=== PATIENT | female | born 1990 | race Caucasian/White ===

== ENCOUNTER → 2017-01-25 | Outpatient (CLI) | payer OTHER ==
[2017-01-25 16:16] LABS: URINE APPEARANCE CLEAR (CLEAR); URINE BILIRUBIN NEG (NEG); URINE COLOR YELLOW; URINE NITRITE NEG (NEG); URINE PH 5.5 (4.5-7.5); URINE SPECIFIC GRAVITY 1.018 (1.000-1.030); UROBILINOGEN NEG (NEG)
[2017-01-25 16:25] LABS: MANUAL MICROSCOPIC REQUIRED? NO; REVIEW REQ? NO
== END | disposition home or self-care (01) ==
LOC: C.LABSPEC 15:55
PROVIDERS: ATTEND Obstetrics & Gynecology
DX: Z34.01 Encounter for supervision of normal first pregnancy, first trimester (principal)

== ENCOUNTER → 2017-02-01 | Outpatient (CLI) | payer OTHER | END | disposition home or self-care (01) | LOC: C.PAPS 09:48 | PROVIDERS: ATTEND Obstetrics & Gynecology | DX: Z12.4 Encounter for screening for malignant neoplasm of cervix (principal) ==

== ENCOUNTER → 2017-02-01 | Outpatient (CLI) | payer OTHER ==
[2017-02-01 16:32] LABS: BASO % 0.3 %; BASO ABS # 0.02 K/uL (0-0.2); COMPLETE YES; EOS % 0.5 %; HEMATOCRIT 38.6 % (37-47); IG% 0.3 %; LYMPH % 24.5 %; LYMPH ABS # 1.87 K/uL (1.2-3.4); MEAN CELL VOLUME 94.8 fL (80-100); MEAN CORPUSCULAR HEMOGLOBIN 32.9 pg (25-34); MEAN CORPUSCULAR HGB CONC 34.7 g/dl (32-36); MEAN PLATELET VOLUME 11.3 fL (7.4-10.4); MONO % 7.3 %; NEUT % 67.1 %; PLATELET COUNT 216 K/uL (130-400); RED BLOOD COUNT 4.07 M/uL (4.2-5.4); WHITE BLOOD COUNT 7.62 K/uL (4.8-10.8)
[2017-02-06 00:07] LABS: CHLAMYDIA TRACH RNA*** NOT DETECTED (NOT DETECTED); GC (NEIS GONORRHOEAE)RNA** NOT DETECTED (NOT DETECTED)
== END | disposition home or self-care (01) ==
LOC: C.LAB1850 15:30
PROVIDERS: ATTEND Obstetrics & Gynecology
DX: Z34.01 Encounter for supervision of normal first pregnancy, first trimester (principal)

== ENCOUNTER → 2017-03-22 | Outpatient (CLI) | payer BC | END | disposition home or self-care (01) | LOC: C.LAB1850 14:37 | PROVIDERS: ATTEND Obstetrics & Gynecology | DX: Z34.02 Encounter for supervision of normal first pregnancy, second trimester (principal) ==

== ENCOUNTER → 2017-04-09 | Outpatient (CLI) | payer BC | END | disposition home or self-care (01) | LOC: C.LAB1850 07:44 | PROVIDERS: ATTEND Obstetrics & Gynecology | DX: O28.1 Abnormal biochemical finding on antenatal screening of mother (principal); Z3A.00 Weeks of gestation of pregnancy not specified ==

== ENCOUNTER → 2017-06-14 | Outpatient (CLI) | payer BC ==
[2017-06-14 12:39] LABS: HEMATOCRIT 38.3 % (37-47); HEMOGLOBIN 13.1 g/dL (12.0-16.0)
== END | disposition home or self-care (01) ==
LOC: C.LAB1850 09:48
PROVIDERS: ATTEND Obstetrics & Gynecology
DX: Z34.03 Encounter for supervision of normal first pregnancy, third trimester (principal)

== ENCOUNTER → 2017-06-27 | Outpatient (CLI) | payer BC | END | disposition home or self-care (01) | LOC: C.LAB1850 08:02 | PROVIDERS: ATTEND Obstetrics & Gynecology | DX: O28.1 Abnormal biochemical finding on antenatal screening of mother (principal) ==

== ENCOUNTER 2020-03-09 15:44 | Inpatient (IN) ==
[2020-03-09 16:24] LABS: Basophils # (auto) 0.01 K/uL (0-0.2); Basophils % (auto) 0.1 %; Eosinophils # (auto) 0.07 K/uL (0-0.5); Hemoglobin 13.9 g/dL (12.0-16.0); Immature Granulocytes # (auto) 0.06 K/uL (0.00-0.02); Immature Granulocytes % (auto) 0.8 %; Lymphocytes # (auto) 1.78 K/uL (1.2-3.4); Lymphocytes % (auto) 24.6 %; Mean Corpuscular Hemoglobin 33.9 pg (25-34); Mean Platelet Volume 11.9 fL (7.4-10.4); Monocytes # (auto) 0.59 K/uL (0.11-0.59); Monocytes % (auto) 8.2 %; Neutrophils # (auto) 4.72 K/uL (1.4-6.5); Neutrophils % (auto) 65.3 %; Platelet Count 167 K/uL (130-400); RDW Coefficient of Variation 13.6 % (11.5-14.5); RDW Standard Deviation 49.4 fL (36.4-46.3); White Blood Count 7.23 K/uL (4.8-10.8)
[2020-03-09 16:25] LABS: Mean Corpuscular Hgb Conc 33.9 g/dL (32-36)
[2020-03-09 16:41] LABS: Alanine Aminotransferase 17 U/L (12-78); Albumin Level 3.2 gm/dl (3.4-5.0); Aspartate Aminotransferase 16 U/L (15-37); BUN Creatinine Ratio 13.5 (10-20); Blood Urea Nitrogen 9 mg/dl (7-18); Calcium 9.1 mg/dl (8.5-10.1); Carbon Dioxide 20 mmol/L (21-32); Chloride 114 mmol/L (98-107); Est GFR (African American) 138.4; Est GFR (Non-African American) 119.4; Glucose 86 mg/dl (70-99); Potassium 3.7 mmol/L (3.5-5.1); Sodium 139 mmol/L (136-145)
[2020-03-09 16:44] LABS: Albumin Globulin Ratio 0.9 (0.9-2); Alkaline Phosphatase 172 U/L (45-117); Bilirubin,Total 0.3 mg/dl (0.2-1); Globulin 3.7 gm/dl (2.5-4.0); Total Protein 6.9 gm/dl (6.4-8.2)
[2020-03-09 17:11] LABS: Creatinine Urine Random 27.7 mg/dl; Total Protein Urine Random < 5.0 mg/dl (0-11.9)
--- NOTE | 2020-03-09 17:31 | History & Physical Report ---
Date of Service March 09, 2020 Assessment & Plan (1) : 30 y/o at 37 2/7 wga presenting for eval of elevated BPs in clinic -Will monitor BPs here, will meet criteria if still mild range after 4 hours and delivery would be indicated at this GA -PET labs ordered -Will try different maternal positioning to try to move fetus into true vertex position, but discussed would need to discuss version vs if still malpositioned History of Present Illness Chief Complaint: Elevated BP in clinic Primary Care Provider: GT Ramirez 30 y/o at 37 2/7 wga w/ [facility] 03/28/20 by LMP 06/22/19 c/w 1st tri US on 09/13 who presents from clinic due to elevated BPs in clinic. Seen for routine OB visit today when found to have BPs 150/100 x 2, the second after 5 minutes. Denies s/s PET, had 3+ DTR, no clonus. Noted hx of mildly elevated BPs in pp period while in hospital, did not need BP meds but did have BP check 1 wk later. In L&D, still denies all s/s of PET PNI: Rh neg Anti-IH antibody identified, no clinical significance Past OBGYN Hx G1 2018 at 38 wks G2 current Menarche 14, periods q28 no hx abnl paps, last 08/2019 neg cytology no hx STIs Allergies Allergy/AdvReac Type Severity Reaction Status Date / Time amoxicillin Allergy Intermediate Hives Verified 03/09/20 15:09 pollen extracts Allergy Mild Stuffiness Verified 03/09/20 15:09 Home Medications Medication Instructions Recorded Confirmed Type prenat.vits,sarah,apl-fvdq-aliyo 1 tab PO DAILY 08/31/19 03/09/20 History Patient History Medical History History of chicken pox Family History Grandfather (Maternal) Diabetes Mother Hypertension Grandmother (Paternal) Hypertension Grandmother (Maternal) Ovarian cancer Social History Smoking Status: Never smoker Hx Alcohol Use: No Hx Substance Use: No marital status: marital status details: Ryan Bean (28) [phone] Current Living Situation: Spouse and Family Current Living Situation Comment: lives with spouse and son, no pets current occupational status: employed 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[employer] [facility] Physical Exam Constitutional: WD/WN, vitals as above no acute distress Respiratory: normal respiratory effort; no respiratory distress and no labored breathing Gastrointestinal (Abdomen): Percussion/Palpation: abdomen soft; abdomen nontender Genitourinary: OB Exam Monitor Tracing: + external FHT monitor used, + external uterine monitor used and + category I (145/mod/+accel/-decel) BSUS reveals slightly oblique position, w/ ?hand above the cervix and below the level of the head Results & Data ([facility]) Vital Signs (Past 12 Hours) Vital Signs Pulse Resp BP 03/09/20 17:27 105 H 126/86 03/09/20 17:05 107 H 144/90 H 03/09/20 16:49 111 H 141/95 H 03/09/20 16:34 103 H 136/87 03/09/20 16:17 99 H 142/82 H 03/09/20 16:12 100 H 156/93 H 03/09/20 16:00 20 03/09/20 15:58 111 H 155/91 H Coding Level of Care Code None Diagnoses Z34.90
[2020-03-09] MEDS ORDERED: OXYTOCIN 30 UNITS/500 ML BAG IV PRN ×2 (20:22)
--- NOTE | 2020-03-09 20:35 | Labor Progress Brief Note ---
Date of Service March 09, 2020 Subjective Presented to bedside for re-evaluation. BPs remained elevated, not severe. Normalized while pt was laying on her side, but when sitting up or otherwise still elevated. Meets criteria for gHTN at this point. Discussed recommendation for delivery. Assessment & Plan (1) : 30 y/o at 37 2/7 wga now admitted for IOL for gHTN -VSS - BPs mild range, not severe currently -Fetus cat 1 -Labor - fetus now vertex, no hand b/w cervix and head. Will proceed with IOL w/ craig bulb and pit -gHTN - labs wnl, mild range BPs currently. Discussed if BPs enter severe range, would meet criteria for PET w/ SF and need mag for seizure ppx, pt verbalized understanding -GBS neg -Epidural PRN Physical Exam Constitutional: WD/WN, vitals as above no acute distress Respiratory: normal respiratory effort; no respiratory distress and no labored breathing Genitourinary: OB Exam Abdomen: + vertex (by BSUS and sutures) and + estimated weight (7-8lb) Manual OB Exam: + cervical dilation 1 cm, + cervical effacement 70% and + station high OB Exam Monitor Tracing: + external FHT monitor used, + external uterine monitor used (irregular ctx) and + category I (140/mod/+accel/-decel) Results & Data ([facility]) Vital Signs (Past 12 Hours) Vital Signs Temp Pulse Resp BP 03/09/20 20:27 88 153/96 H 03/09/20 20:12 102 H 154/100 H 03/09/20 19:58 89 136/91 03/09/20 19:42 100 H 130/90 03/09/20 19:28 94 H 133/85 03/09/20 19:12 101 H 115/68 03/09/20 18:57 98 H 109/62 03/09/20 18:43 88 110/61 03/09/20 18:28 89 115/58 L 03/09/20 18:13 90 119/66 03/09/20 17:57 110 H 123/66 03/09/20 17:45 98 H 135/67 03/09/20 17:35 99.0 F 20 03/09/20 17:27 105 H 126/86 03/09/20 17:05 107 H 144/90 H 03/09/20 16:49 111 H 141/95 H 03/09/20 16:34 103 H 136/87 03/09/20 16:17 99 H 142/82 H 03/09/20 16:12 100 H 156/93 H 03/09/20 16:00 20 03/09/20 15:58 111 H 155/91 H Laboratory Results 03/09/20 03/09/20 03/09/20 Range/Units 20:25 20:25 16:13 WBC (4.8-10.8) K/uL RBC (4.2-5.4) M/uL Hgb (12.0-16.0) g/dL Hct (37-47) % MCV (80-100) fL MCH (25-34) pg MCHC (32-36) g/dL RDW Std Deviation (36.4-46.3) fL RDW Coeff of Randi (11.5-14.5) % Plt Count (130-400) K/uL MPV (7.4-10.4) fL Immature Gran % (Auto) % Neut % (Auto) % Lymph % (Auto) % Norman % (Auto) % Eos % (Auto) % Baso % (Auto) % Neut # (Auto) (1.4-6.5) K/uL Lymph # (Auto) (1.2-3.4) K/uL Norman # (Auto) (0.11-0.59) K/uL Eos # (Auto) (0-0.5) K/uL Baso # (Auto) (0-0.2) K/uL Immature Gran # (Auto) (0.00-0.02) K/uL Sodium (136-145) mmol/L Potassium (3.5-5.1) mmol/L Chloride (98-107) mmol/L Carbon Dioxide (21-32) mmol/L Anion Gap (3-11) BUN (7-18) mg/dl Creatinine (0.6-1.2) mg/dl Est Cr Clr Drug Dosing Est GFR ( Amer) Est GFR (Non-Af Amer) BUN/Creatinine Ratio (10-20) Glucose (70-99) mg/dl Calcium (8.5-10.1) mg/dl Total Bilirubin (0.2-1) mg/dl AST (15-37) U/L ALT (12-78) U/L Alkaline Phosphatase (45-117) U/L Total Protein (6.4-8.2) gm/dl Albumin (3.4-5.0) gm/dl Globulin (2.5-4.0) gm/dl Albumin/Globulin Ratio (0.9-2) Ur Random Creatinine mg/dl U Random Total Protein (0-11.9) mg/dl Protein/Creatinin Ratio COVID-19 Eval Order Covid19 IDNow at[facility] SARS-CoV-2, RNA, NAAT Pending Blood Type Pending Antibody Screen Pending 03/09/20 03/09/20 03/09/20 Range/Units 16:13 16:13 15:40 WBC 7.23 (4.8-10.8) K/uL RBC 4.10 L (4.2-5.4) M/uL Hgb 13.9 (12.0-16.0) g/dL Hct 41.0 (37-47) % MCV 100.0 (80-100) fL MCH 33.9 (25-34) pg MCHC 33.9 (32-36) g/dL RDW Std Deviation 49.4 H (36.4-46.3) fL RDW Coeff of Randi 13.6 (11.5-14.5) % Plt Count 167 (130-400) K/uL MPV 11.9 H (7.4-10.4) fL Immature Gran % (Auto) 0.8 % Neut % (Auto) 65.3 % Lymph % (Auto) 24.6 % Norman % (Auto) 8.2 % Eos % (Auto) 1.0 % Baso % (Auto) 0.1 % Neut # (Auto) 4.72 (1.4-6.5) K/uL Lymph # (Auto) 1.78 (1.2-3.4) K/uL Norman # (Auto) 0.59 (0.11-0.59) K/uL Eos # (Auto) 0.07 (0-0.5) K/uL Baso # (Auto) 0.01 (0-0.2) K/uL Immature Gran # (Auto) 0.06 H (0.00-0.02) K/uL Sodium 139 (136-145) mmol/L Potassium 3.7 (3.5-5.1) mmol/L Chloride 114 H (98-107) mmol/L Carbon Dioxide 20 L (21-32) mmol/L Anion Gap 5.0 (3-11) BUN 9 (7-18) mg/dl Creatinine 0.66 (0.6-1.2) mg/dl Est Cr Clr Drug Dosing Not Reportable Est GFR ( Amer) 138.4 Est GFR (Non-Af Amer) 119.4 BUN/Creatinine Ratio 13.5 (10-20) Glucose 86 (70-99) mg/dl Calcium 9.1 (8.5-10.1) mg/dl Total Bilirubin 0.3 (0.2-1) mg/dl AST 16 (15-37) U/L ALT 17 (12-78) U/L Alkaline Phosphatase 172 H (45-117) U/L Total Protein 6.9 (6.4-8.2) gm/dl Albumin 3.2 L (3.4-5.0) gm/dl Globulin 3.7 (2.5-4.0) gm/dl Albumin/Globulin Ratio 0.9 (0.9-2) Ur Random Creatinine 27.7 mg/dl U Random Total Protein < 5.0 (0-11.9) mg/dl Protein/Creatinin Ratio TNP COVID-19 Eval Order SARS-CoV-2, RNA, NAAT Blood Type Antibody Screen Coding Level of Care Code None Diagnoses Z34.90
--- NOTE | 2020-03-09 21:49 | Labor Progress Brief Note ---
Date of Service March 09, 2020 Subjective Resting comfortably, covid returned neg Assessment & Plan (1) : 30 y/o at 37 2/7 wga now admitted for IOL for gHTN -VSS - BPs mild range -Fetus cat 1 -Labor - 40cc craig placed, will start pit as well -gHTN - labs wnl, mild range BPs currently. Discussed if BPs enter severe range, would meet criteria for PET w/ SF and need mag for seizure ppx, pt verbalized understanding -GBS neg -Epidural PRN Physical Exam Constitutional: WD/WN, vitals as above no acute distress Respiratory: normal respiratory effort; no respiratory distress and no labored breathing Genitourinary: Manual OB Exam: + cervical dilation 1 cm, + cervical effacement 70% and + station high OB Exam Monitor Tracing: + external FHT monitor used, + external uterine monitor used (irregular ctx) and + category I (140/mod/+accel/-decel) 40cc craig bulb placed w/o difficulty Results & Data ([facility]) Vital Signs (Past 12 Hours) Vital Signs Temp Pulse Resp BP 03/09/20 21:42 112 H 153/91 H 03/09/20 21:13 90 138/81 03/09/20 20:58 116 H 145/86 H 03/09/20 20:48 111 H 140/100 03/09/20 20:27 88 153/96 H 03/09/20 20:12 102 H 154/100 H 03/09/20 19:58 89 136/91 03/09/20 19:42 100 H 130/90 03/09/20 19:28 94 H 133/85 03/09/20 19:12 101 H 115/68 03/09/20 18:57 98 H 109/62 03/09/20 18:43 88 110/61 03/09/20 18:28 89 115/58 L 03/09/20 18:13 90 119/66 03/09/20 17:57 110 H 123/66 03/09/20 17:45 98 H 135/67 03/09/20 17:35 99.0 F 20 03/09/20 17:27 105 H 126/86 03/09/20 17:05 107 H 144/90 H 03/09/20 16:49 111 H 141/95 H 03/09/20 16:34 103 H 136/87 03/09/20 16:17 99 H 142/82 H 03/09/20 16:12 100 H 156/93 H 03/09/20 16:00 20 03/09/20 15:58 111 H 155/91 H Coding Level of Care Code None Diagnoses Z34.90
[2020-03-09] MEDS: LACTATED RINGER'S 1,000 ML IV PRN (22:28)
--- NOTE | 2020-03-09 22:42 | Labor Progress Brief Note ---
Date of Service March 09, 2020 Subjective Naylor bulb expulsed Assessment & Plan (1) : 30 y/o at 37 2/7 wga now admitted for IOL for gHTN -VSS - BPs mild range -Fetus cat 1 -Labor - pit started now, will continue to augment -gHTN - labs wnl, mild range BPs currently. Discussed if BPs enter severe range, would meet criteria for PET w/ SF and need mag for seizure ppx, pt verbalized understanding -GBS neg -Epidural PRN Physical Exam Constitutional: WD/WN, vitals as above no acute distress Respiratory: normal respiratory effort; no respiratory distress and no labored breathing Gastrointestinal (Abdomen): Percussion/Palpation: abdomen soft; abdomen nontender Genitourinary: Manual OB Exam: + cervical dilation (3.5cm), + cervical effacement 70% and + station high OB Exam Monitor Tracing: + external FHT monitor used, + external uterine monitor used (q3-5min) and + category I (135/mod/+accel/-decel) Results & Data ([facility]) Vital Signs (Past 12 Hours) Vital Signs Temp Pulse Resp BP 03/09/20 22:29 93 H 159/91 H 03/09/20 22:12 95 H 133/73 03/09/20 21:57 94 H 133/75 03/09/20 21:42 112 H 153/91 H 03/09/20 21:13 90 138/81 03/09/20 20:58 116 H 145/86 H 03/09/20 20:48 111 H 140/100 03/09/20 20:27 88 153/96 H 03/09/20 20:12 102 H 154/100 H 03/09/20 19:58 89 136/91 03/09/20 19:42 100 H 130/90 03/09/20 19:28 94 H 133/85 03/09/20 19:12 101 H 115/68 03/09/20 18:57 98 H 109/62 03/09/20 18:43 88 110/61 03/09/20 18:28 89 115/58 L 03/09/20 18:13 90 119/66 03/09/20 17:57 110 H 123/66 03/09/20 17:45 98 H 135/67 03/09/20 17:35 99.0 F 20 01/20/21 17:27 105 H 126/86 03/09/20 17:05 107 H 144/90 H 03/09/20 16:49 111 H 141/95 H 03/09/20 16:34 103 H 136/87 03/09/20 16:17 99 H 142/82 H 03/09/20 16:12 100 H 156/93 H 03/09/20 16:00 20 03/09/20 15:58 111 H 155/91 H Coding Level of Care Code None Diagnoses Z34.90
--- NOTE | 2020-03-09 23:53 | Anesthesiology Consultation ---
Date of Service March 09, 2020 Assessment & Plan (1) Encounter for pre-operative examination: Chart Review Chart Review: Patient NOT seen in Pre Admission Testing and Acceptable Risk for Labor Epidural Consults Requested none Proposed Anesthesia Anesthesia Type: Labor Epidural Risk / Benefits Reviewed With: PT / POA / Parent / Guardian, Accepts Plan and Informed Consent Obtained History Height/Weight Height: 5 ft 1 in Weight: 85.729 kg Allergies Allergy/AdvReac Type Severity Reaction Status Date / Time amoxicillin Allergy Intermediate Hives Verified 03/09/20 17:57 pollen extracts Allergy Mild Stuffiness Verified 03/09/20 17:57 Medications Home Medications Medication Instructions Recorded Confirmed Last Taken prenat.vits,sarah,vjr-izal-agprs 1 tab PO DAILY 08/31/19 03/09/20 03/09/20 08:00 Active Medications Generic Name Dose Route Start Last Admin Trade Name Freq PRN Reason Stop Dose Admin Lactated Ringer's 1,000 mls @ 125 mls/hr 03/09/20 20:22 03/09/20 22:28 Lr IV 03/11/20 20: 125 mls/hr .Q8H PRN Administration L&D Protocol Protocol Oxytocin 30 units in 500 mls @ 4 mls/hr 03/09/20 20:22 03/09/20 23:30 Pitocin IV 03/11/20 20:21 0.24 units/hr .Q24H PRN 4 mls/hr Labor Induction/Augmentation Titration Protocol 0.24 UNITS/HR Past Medical History Medical History History of chicken pox Past Family History Family History Grandfather (Maternal) Diabetes Mother Hypertension Grandmother (Paternal) Hypertension Grandmother (Maternal) Ovarian cancer Social History Smoking Status: Never smoker Hx Alcohol Use: No Hx Substance Use: No Physical Exam Vital Signs Last Vital Signs Temp 36.7 C 03/09/20 23:01 Pulse 136 H 03/09/20 23:43 Resp 20 03/09/20 23:30 BP 125/82 03/09/20 23:43 Testing Laboratory Results 03/09/20 16:13 03/09/20 16:13 Blood Type A Negative 03/09/20 16:13 Antibody Screen POSITIVE A 03/09/20 16:13
[2020-03-10] MEDS ORDERED: ePHEDrine sulfate 50 MG/ML AMP ONE (00:03)
[2020-03-10] MEDS ORDERED: SODIUM CHLORIDE 0.9% INJ 10 ML VIAL ONE (00:03)
[2020-03-10] MEDS ORDERED: fentaNYL 2MCG/ML ROPIVACAINE 1.25MG/ML 100 ML BAG EPI ONE (00:04)
[2020-03-10] MEDS ORDERED: BUPIVACAINE 0.25% 30 ML VIAL ONE (00:04)
[2020-03-10] MEDS ORDERED: fentaNYL citrate 100 MCG/2 ML VIAL ONE (00:04)
[2020-03-10] MEDS ORDERED: ePHEDrine sulfate 50 MG/ML AMP IV PRN (00:39)
[2020-03-10] MEDS ORDERED: fentaNYL 2MCG/ML ROPIVACAINE 1.25MG/ML 100 ML BAG EPI PRN (00:39)
[2020-03-10] MEDS ORDERED: diphenhydrAMINE 50 MG/ML VIAL IV PRN (00:39)
[2020-03-10] MEDS ORDERED: NALOXONE HCL 0.4 MG/1 ML VIAL/CARP IV PRN (00:39)
[2020-03-10] MEDS ORDERED: NALOXONE HCL 1 MG in SODIUM CHLORIDE 0.9% 1000ML 1,000 ML IV PRN (00:39)
[2020-03-10] MEDS ORDERED: ONDANSETRON INJ 2 MG/ML 2 ML VIAL IV PRN (00:39)
[2020-03-10] MEDS: LACTATED RINGER'S 1,000 ML IV PRN ×3 (02:57→08:47)
--- NOTE | 2020-03-10 03:23 | Labor Progress Brief Note ---
Date of Service March 10, 2020 Subjective Comfortable with epidural. Called by nursing due to blood clot that came out when nurse checked cervix after some bleeding noted with epidural Assessment & Plan (1) : 30 y/o at 37 3/7 wga now admitted for IOL for gHTN -VSS - BPs mild range -Fetus cat 2 but reassuring after epidural -Labor - pit at 8, titrate per protocol. Will let pt rest from epidural as was hypotensive for a short time, then plan to arom -gHTN - BPs stable -GBS neg -Epidural in place Physical Exam Constitutional: WD/WN, vitals as above no acute distress Genitourinary: Manual OB Exam: + cervical dilation 5 cm, + cervical effacement 70% and + station -2 OB Exam Monitor Tracing: + external FHT monitor used, + external uterine monitor used (q3min) and + category II (140/min-mod/+accel/-decel) Keaton sized blood clot noted on chux with bleeding, examination of vulva during and outside of contraction do not show continued bleeding coming out of vagina or on vulva Results & Data ([facility]) Vital Signs (Past 12 Hours) Vital Signs Temp Pulse Resp BP Pulse Ox 03/10/20 03:14 107 H 132/78 03/10/20 03:13 105 H 100 03/10/20 03:11 115 H 152/92 H 03/10/20 03:08 127 H 100 03/10/20 03:06 123 H 131/75 03/10/20 03:03 113 H 100 03/10/20 03:01 96 H 126/73 03/10/20 03:00 20 03/10/20 02:59 88 92/55 L 03/10/20 02:58 89 100 03/10/20 02:57 100 H 93/51 L 03/10/20 02:55 122 H 20 125/70 03/10/20 02:53 118 H 130/91 99 03/10/20 02:51 120 H 130/87 03/10/20 02:50 20 03/10/20 02:49 131 H 123/71 03/10/20 02:48 140 H 100 03/10/20 02:47 122 H 127/75 03/10/20 02:45 112 H 20 135/85 03/10/20 02:43 128 H 131/84 100 03/10/20 02:38 119 H 143/94 H 100 03/10/20 02:33 116 H 100 03/10/20 02:30 98.1 F 20 03/10/20 02:28 112 H 98 03/10/20 02:23 112 H 83 L 03/10/20 02:22 112 H 94 03/10/20 02:18 84 86 L 03/10/20 02:13 77 86 L 03/10/20 02:08 55 L 86 L 03/10/20 02:03 57 L 87 L 03/10/20 02:00 20 03/10/20 01:38 91 H 133/81 03/10/20 01:00 03/10/20 00:30 83 129/81 03/10/20 00:00 20 03/09/20 23:43 136 H 125/82 03/09/20 23:30 20 03/09/20 23:27 118 H 132/80 03/09/20 23:14 111 H 147/84 H 03/09/20 23:08 20 03/09/20 23:01 98.1 F 03/09/20 22:58 98 H 134/88 03/09/20 22:44 106 H 135/102 H 03/09/20 22:29 97.9 F 93 H 20 159/91 H 03/09/20 22:12 95 H 133/73 03/09/20 21:57 94 H 133/75 03/09/20 21:42 112 H 153/91 H 03/09/20 21:13 90 138/81 03/09/20 20:58 116 H 145/86 H 03/09/20 20:48 111 H 140/100 03/09/20 20:27 88 153/96 H 03/09/20 20:12 102 H 154/100 H 03/09/20 19:58 89 136/91 03/09/20 19:42 100 H 130/90 03/09/20 19:28 94 H 133/85 03/09/20 19:12 101 H 115/68 03/09/20 18:57 98 H 109/62 03/09/20 18:43 88 110/61 03/09/20 18:28 89 115/58 L 03/09/20 18:13 90 119/66 03/09/20 17:57 110 H 123/66 03/09/20 17:45 98 H 135/67 03/09/20 17:35 99.0 F 03/09/20 17:27 105 H 126/86 03/09/20 17:05 107 H 144/90 H 03/09/20 16:49 111 H 141/95 H 03/09/20 16:34 103 H 136/87 03/09/20 16:17 99 H 142/82 H 03/09/20 16:12 100 H 156/93 H 03/09/20 16:00 20 03/09/20 15:58 111 H 155/91 H Coding Level of Care Code None Diagnoses Z34.90
--- NOTE | 2020-03-10 06:47 | Labor Progress Brief Note ---
Date of Service March 10, 2020 Subjective Comfortable with epidural. Called by nursing due to blood clot that came out when nurse checked cervix after some bleeding noted with epidural Assessment & Plan (1) : 30 y/o at 37 3/7 wga, IOL for gHTN -VSS - normotensive after epidural -Fetus cat 1 -Labor - pit per protocol, now s/p arom -gHTN - BPs stable -GBS neg -Epidural in place Physical Exam Constitutional: WD/WN, vitals as above no acute distress Respiratory: normal respiratory effort; no respiratory distress and no labored breathing Gastrointestinal (Abdomen): Percussion/Palpation: abdomen soft; abdomen nontender Genitourinary: Manual OB Exam: + cervical dilation 5 cm, + cervical effacement 80%, + station -2 and + amniotic fluid (AROM) clear and bloody OB Exam Monitor Tracing: + external FHT monitor used, + external uterine monitor used (q2-3) and + category I (140/mod/+accel/-decel) Results & Data ([facility]) Vital Signs (Past 12 Hours) Vital Signs Temp Pulse Resp BP Pulse Ox 03/10/20 06:43 112 H 123/80 97 03/10/20 06:38 118 H 98 03/10/20 06:33 111 H 99 03/10/20 06:30 98.2 F 20 03/10/20 06:29 88 125/81 03/10/20 06:28 91 H 97 03/10/20 06:23 93 H 97 03/10/20 06:18 90 97 03/10/20 06:14 94 H 122/76 03/10/20 06:13 94 H 97 03/10/20 06:08 94 H 96 03/10/20 06:03 87 97 03/10/20 06:00 16 03/10/20 05:59 92 H 132/70 03/10/20 05:58 89 98 03/10/20 05:53 93 H 98 03/10/20 05:48 93 H 98 03/10/20 05:44 98 H 131/74 03/10/20 05:43 89 97 03/10/20 05:38 92 H 97 03/10/20 05:33 111 H 97 03/10/20 05:30 98.2 F 20 03/10/20 05:28 105 H 135/78 97 03/10/20 05:23 108 H 98 03/10/20 05:18 92 H 96 03/10/20 05:13 95 H 123/73 97 03/10/20 05:08 107 H 96 03/10/20 05:03 108 H 97 03/10/20 05:00 20 03/10/20 04:59 100 H 127/76 03/10/20 04:58 103 H 96 03/10/20 04:53 93 H 97 03/10/20 04:48 89 98 03/10/20 04:44 96 H 128/77 03/10/20 04:43 89 98 03/10/20 04:38 99 H 97 03/10/20 04:33 91 H 97 03/10/20 04:30 20 03/10/20 04:29 92 H 128/79 03/10/20 04:28 92 H 99 03/10/20 04:23 91 H 97 03/10/20 04:18 123 H 99 03/10/20 04:13 96 H 124/74 96 03/10/20 04:08 97 H 96 03/10/20 04:03 94 H 97 03/10/20 04:00 18 03/10/20 03:59 88 131/80 03/10/20 03:58 92 H 98 03/10/20 03:53 88 98 03/10/20 03:48 89 98 03/10/20 03:44 92 H 131/79 03/10/20 03:43 92 H 98 03/10/20 03:38 91 H 99 03/10/20 03:33 90 99 03/10/20 03:30 20 03/10/20 03:28 89 131/77 99 03/10/20 03:23 90 99 03/10/20 03:18 99 H 99 03/10/20 03:15 18 03/10/20 03:14 107 H 132/78 03/10/20 03:13 105 H 100 03/10/20 03:11 115 H 152/92 H 03/10/20 03:08 127 H 100 03/10/20 03:06 123 H 131/75 03/10/20 03:03 113 H 100 03/10/20 03:01 96 H 126/73 03/10/20 03:00 20 03/10/20 02:59 88 92/55 L 03/10/20 02:58 89 100 03/10/20 02:57 100 H 93/51 L 03/10/20 02:55 122 H 20 125/70 03/10/20 02:53 118 H 130/91 99 03/10/20 02:51 120 H 130/87 03/10/20 02:50 20 03/10/20 02:49 131 H 123/71 03/10/20 02:48 140 H 100 03/10/20 02:47 122 H 127/75 03/10/20 02:45 112 H 20 135/85 03/10/20 02:43 128 H 131/84 100 03/10/20 02:38 119 H 143/94 H 100 03/10/20 02:33 116 H 100 03/10/20 02:30 98.1 F 20 03/10/20 02:28 112 H 98 03/10/20 02:23 112 H 83 L 03/10/20 02:22 112 H 94 03/10/20 02:18 84 86 L 03/10/20 02:13 77 86 L 03/10/20 02:08 55 L 86 L 03/10/20 02:03 57 L 87 L 03/10/20 02:00 03/10/20 01:38 91 H 133/81 03/10/20 01:00 03/10/20 00:30 83 129/81 03/10/20 00:00 03/09/20 23:43 136 H 125/82 03/09/20 23:30 20 03/09/20 23:27 118 H 132/80 03/09/20 23:14 111 H 147/84 H 03/09/20 23:08 20 03/09/20 23:01 98.1 F 03/09/20 22:58 98 H 134/88 03/09/20 22:44 106 H 135/102 H 03/09/20 22:29 97.9 F 93 H 20 159/91 H 03/09/20 22:12 95 H 133/73 03/09/20 21:57 94 H 133/75 03/09/20 21:42 112 H 153/91 H 03/09/20 21:13 90 138/81 03/09/20 20:58 116 H 145/86 H 03/09/20 20:48 111 H 140/100 03/09/20 20:27 88 153/96 H 03/09/20 20:12 102 H 154/100 H 03/09/20 19:58 89 136/91 03/09/20 19:42 100 H 130/90 03/09/20 19:28 94 H 133/85 03/09/20 19:12 101 H 115/68 03/09/20 18:57 98 H 109/62 Coding Level of Care Code None Diagnoses Z34.90
--- NOTE | 2020-03-10 08:47 | Labor Progress Brief Note ---
Date of Service March 10, 2020 Subjective Was receiving sign out on patient when fht dropped into the 50s. Baby recusscitated--O2 on, pit off, rolled and changed position. It appears the patient had an episode of tachysystole so given 0.25mg terb. baby then had fht return to the 110s. she was rolled back to the left side, an FSE was placed. Assessment & Plan (1) Gestational hypertension: fetus has recovered from an episode of bradycardia likely secondary to tachysystole. Reassuring now. Contractions better spaced. PIt still off. Will expectantly manage. Anticipate vaginal delivery. fhr tachy from terb. Her blood pressures are good at this point and have been throughout labor. Physical Exam Constitutional: WD/WN, vitals as above Psychiatric: A+Ox3, euthymic affect Genitourinary: cx-- toco--before episode about q 1-2 min, after term now q2.5 min efm--now 130s with mod variability, was having some early decels with contractions. BRADY Results & Data ([facility]) Vital Signs (Past 12 Hours) Vital Signs Temp Pulse Resp BP Pulse Ox 03/10/20 08:38 140 H 100 03/10/20 08:33 162 H 100 03/10/20 08:28 114 H 100 03/10/20 08:23 106 H 100 03/10/20 08:18 135 H 98 03/10/20 08:14 116 H 130/79 03/10/20 08:13 119 H 100 03/10/20 08:08 94 H 100 03/10/20 08:03 98 H 100 03/10/20 08:00 95 H 135/74 03/10/20 07:58 100 H 99 03/10/20 07:53 95 H 100 03/10/20 07:48 87 99 03/10/20 07:44 92 H 129/75 03/10/20 07:43 94 H 99 03/10/20 07:38 96 H 99 03/10/20 07:33 97 H 99 03/10/20 07:29 91 H 120/73 03/10/20 07:28 89 98 03/10/20 07:23 98 H 98 03/10/20 07:18 97 H 98 03/10/20 07:14 36.9 C 86 20 121/70 03/10/20 07:13 97 H 97 03/10/20 07:08 99 H 98 03/10/20 07:03 97 H 98 03/10/20 07:01 114 H 129/85 03/10/20 07:00 20 03/10/20 06:58 97 H 98 03/10/20 06:53 100 H 97 03/10/20 06:48 98 H 96 03/10/20 06:43 112 H 123/80 97 03/10/20 06:38 118 H 98 03/10/20 06:33 111 H 99 03/10/20 06:30 36.8 C 20 03/10/20 06:29 88 125/81 03/10/20 06:28 91 H 97 03/10/20 06:23 93 H 97 03/10/20 06:18 90 97 03/10/20 06:14 94 H 122/76 03/10/20 06:13 94 H 97 03/10/20 06:08 94 H 96 03/10/20 06:03 87 97 03/10/20 06:00 16 03/10/20 05:59 92 H 132/70 03/10/20 05:58 89 98 03/10/20 05:53 93 H 98 03/10/20 05:48 93 H 98 03/10/20 05:44 98 H 131/74 03/10/20 05:43 89 97 03/10/20 05:38 92 H 97 03/10/20 05:33 111 H 97 03/10/20 05:30 36.8 C 20 03/10/20 05:28 105 H 135/78 97 03/10/20 05:23 108 H 98 03/10/20 05:18 92 H 96 03/10/20 05:13 95 H 123/73 97 03/10/20 05:08 107 H 96 03/10/20 05:03 108 H 97 03/10/20 05:00 20 03/10/20 04:59 100 H 127/76 03/10/20 04:58 103 H 96 03/10/20 04:53 93 H 97 03/10/20 04:48 89 98 03/10/20 04:44 96 H 128/77 03/10/20 04:43 89 98 03/10/20 04:38 99 H 97 03/10/20 04:33 91 H 97 03/10/20 04:30 20 03/10/20 04:29 92 H 128/79 03/10/20 04:28 92 H 99 03/10/20 04:23 91 H 97 03/10/20 04:18 123 H 99 03/10/20 04:13 96 H 124/74 96 03/10/20 04:08 97 H 96 03/10/20 04:03 94 H 97 03/10/20 04:00 18 03/10/20 03:59 88 131/80 03/10/20 03:58 92 H 98 03/10/20 03:53 88 98 03/10/20 03:48 89 98 03/10/20 03:44 92 H 131/79 03/10/20 03:43 92 H 98 03/10/20 03:38 91 H 99 03/10/20 03:33 90 99 03/10/20 03:30 20 03/10/20 03:28 89 131/77 99 03/10/20 03:23 90 99 03/10/20 03:18 99 H 99 03/10/20 03:15 18 03/10/20 03:14 107 H 132/78 03/10/20 03:13 105 H 100 03/10/20 03:11 115 H 152/92 H 03/10/20 03:08 127 H 100 03/10/20 03:06 123 H 131/75 03/10/20 03:03 113 H 100 03/10/20 03:01 96 H 126/73 03/10/20 03:00 20 03/10/20 02:59 88 92/55 L 03/10/20 02:58 89 100 03/10/20 02:57 100 H 93/51 L 03/10/20 02:55 122 H 20 125/70 03/10/20 02:53 118 H 130/91 99 03/10/20 02:51 120 H 130/87 03/10/20 02:50 20 03/10/20 02:49 131 H 123/71 03/10/20 02:48 140 H 100 03/10/20 02:47 122 H 127/75 03/10/20 02:45 112 H 20 135/85 03/10/20 02:43 128 H 131/84 100 03/10/20 02:38 119 H 143/94 H 100 03/10/20 02:33 116 H 100 03/10/20 02:30 36.7 C 20 03/10/20 02:28 112 H 98 03/10/20 02:23 112 H 83 L 03/10/20 02:22 112 H 94 03/10/20 02:18 84 86 L 03/10/20 02:13 77 86 L 03/10/20 02:08 55 L 86 L 03/10/20 02:03 57 L 87 L 03/10/20 02:00 03/10/20 01:38 91 H 133/81 03/10/20 01:00 03/10/20 00:30 83 129/81 03/10/20 00:00 03/09/20 23:43 136 H 125/82 03/09/20 23:30 20 03/09/20 23:27 118 H 132/80 03/09/20 23:14 111 H 147/84 H 03/09/20 23:08 20 03/09/20 23:01 36.7 C 03/09/20 22:58 98 H 134/88 03/09/20 22:44 106 H 135/102 H 03/09/20 22:29 36.6 C 93 H 20 159/91 H 03/09/20 22:12 95 H 133/73 03/09/20 21:57 94 H 133/75 03/09/20 21:42 112 H 153/91 H 03/09/20 21:13 90 138/81 03/09/20 20:58 116 H 145/86 H 03/09/20 20:48 111 H 140/100 Coding Level of Care Code None Diagnoses Gestational hypertension O13.9
[2020-03-10] MEDS ORDERED: TERBUTALINE SULFATE 1 MG/ML VIAL ONE (08:50)
--- NOTE | 2020-03-10 09:36 | Labor Progress Brief Note ---
Date of Service March 10, 2020 Subjective feeling some pressure Assessment & Plan (1) Gestational hypertension: Admission and Anticipated Discharge Date Admission Date: making progress. fetus reassuring category two. continue current management and anticipate . Physical Exam Constitutional: WD/WN, vitals as above Psychiatric: A+Ox3, euthymic affect Genitourinary: cx--rim/0-+1 toco--q2-3, pit off efm--150s wtih mod variability, small accels , variable/early with some contractions Results & Data ([facility]) Vital Signs (Past 12 Hours) Vital Signs Temp Pulse Resp BP Pulse Ox 03/10/20 09:29 141 H 111/66 03/10/20 09:28 149 H 100 03/10/20 09:23 136 H 100 03/10/20 09:18 133 H 100 03/10/20 09:15 127 H 126/68 03/10/20 09:13 135 H 100 03/10/20 09:08 144 H 100 03/10/20 09:03 131 H 100 03/10/20 08:58 36.3 C L 142 H 20 133/74 100 03/10/20 08:53 132 H 100 03/10/20 08:48 139 H 100 03/10/20 08:45 130 H 137/81 03/10/20 08:43 132 H 100 03/10/20 08:38 140 H 100 03/10/20 08:33 162 H 100 03/10/20 08:28 114 H 100 03/10/20 08:23 106 H 100 03/10/20 08:18 135 H 98 03/10/20 08:14 116 H 130/79 03/10/20 08:13 119 H 100 03/10/20 08:08 94 H 100 03/10/20 08:03 98 H 100 03/10/20 08:00 95 H 135/74 03/10/20 07:58 100 H 99 03/10/20 07:53 95 H 100 03/10/20 07:48 87 99 03/10/20 07:44 92 H 129/75 03/10/20 07:43 94 H 99 03/10/20 07:38 96 H 99 03/10/20 07:33 97 H 99 03/10/20 07:29 91 H 120/73 03/10/20 07:28 89 98 03/10/20 07:23 98 H 98 03/10/20 07:18 97 H 98 03/10/20 07:14 36.9 C 86 20 121/70 03/10/20 07:13 97 H 97 03/10/20 07:08 99 H 98 03/10/20 07:03 97 H 98 03/10/20 07:01 114 H 129/85 03/10/20 07:00 20 03/10/20 06:58 97 H 98 03/10/20 06:53 100 H 97 03/10/20 06:48 98 H 96 03/10/20 06:43 112 H 123/80 97 03/10/20 06:38 118 H 98 03/10/20 06:33 111 H 99 03/10/20 06:30 36.8 C 20 03/10/20 06:29 88 125/81 03/10/20 06:28 91 H 97 03/10/20 06:23 93 H 97 03/10/20 06:18 90 97 03/10/20 06:14 94 H 122/76 03/10/20 06:13 94 H 97 03/10/20 06:08 94 H 96 03/10/20 06:03 87 97 03/10/20 06:00 16 03/10/20 05:59 92 H 132/70 03/10/20 05:58 89 98 03/10/20 05:53 93 H 98 03/10/20 05:48 93 H 98 03/10/20 05:44 98 H 131/74 03/10/20 05:43 89 97 03/10/20 05:38 92 H 97 03/10/20 05:33 111 H 97 03/10/20 05:30 36.8 C 20 03/10/20 05:28 105 H 135/78 97 03/10/20 05:23 108 H 98 03/10/20 05:18 92 H 96 03/10/20 05:13 95 H 123/73 97 03/10/20 05:08 107 H 96 03/10/20 05:03 108 H 97 03/10/20 05:00 20 03/10/20 04:59 100 H 127/76 03/10/20 04:58 103 H 96 03/10/20 04:53 93 H 97 03/10/20 04:48 89 98 03/10/20 04:44 96 H 128/77 03/10/20 04:43 89 98 03/10/20 04:38 99 H 97 03/10/20 04:33 91 H 97 03/10/20 04:30 20 03/10/20 04:29 92 H 128/79 03/10/20 04:28 92 H 99 03/10/20 04:23 91 H 97 03/10/20 04:18 123 H 99 03/10/20 04:13 96 H 124/74 96 03/10/20 04:08 97 H 96 03/10/20 04:03 94 H 97 03/10/20 04:00 18 03/10/20 03:59 88 131/80 03/10/20 03:58 92 H 98 03/10/20 03:53 88 98 03/10/20 03:48 89 98 03/10/20 03:44 92 H 131/79 03/10/20 03:43 92 H 98 03/10/20 03:38 91 H 99 03/10/20 03:33 90 99 03/10/20 03:30 20 03/10/20 03:28 89 131/77 99 03/10/20 03:23 90 99 03/10/20 03:18 99 H 99 03/10/20 03:15 18 03/10/20 03:14 107 H 132/78 03/10/20 03:13 105 H 100 03/10/20 03:11 115 H 152/92 H 03/10/20 03:08 127 H 100 03/10/20 03:06 123 H 131/75 03/10/20 03:03 113 H 100 03/10/20 03:01 96 H 126/73 03/10/20 03:00 20 03/10/20 02:59 88 92/55 L 03/10/20 02:58 89 100 03/10/20 02:57 100 H 93/51 L 03/10/20 02:55 122 H 20 125/70 03/10/20 02:53 118 H 130/91 99 03/10/20 02:51 120 H 130/87 03/10/20 02:50 20 03/10/20 02:49 131 H 123/71 03/10/20 02:48 140 H 100 03/10/20 02:47 122 H 127/75 03/10/20 02:45 112 H 20 135/85 03/10/20 02:43 128 H 131/84 100 03/10/20 02:38 119 H 143/94 H 100 03/10/20 02:33 116 H 100 03/10/20 02:30 36.7 C 20 03/10/20 02:28 112 H 98 03/10/20 02:23 112 H 83 L 03/10/20 02:22 112 H 94 03/10/20 02:18 84 86 L 03/10/20 02:13 77 86 L 03/10/20 02:08 55 L 86 L 03/10/20 02:03 57 L 87 L 03/10/20 02:00 03/10/20 01:38 91 H 133/81 03/10/20 01:00 03/10/20 00:30 83 129/81 03/10/20 00:00 20 03/09/20 23:43 136 H 125/82 03/09/20 23:30 20 03/09/20 23:27 118 H 132/80 03/09/20 23:14 111 H 147/84 H 03/09/20 23:08 20 03/09/20 23:01 36.7 C 03/09/20 22:58 98 H 134/88 03/09/20 22:44 106 H 135/102 H 03/09/20 22:29 36.6 C 93 H 20 159/91 H 03/09/20 22:12 95 H 133/73 03/09/20 21:57 94 H 133/75 03/09/20 21:42 112 H 153/91 H Coding Level of Care Code None Diagnoses Gestational hypertension O13.9
[2020-03-10] MEDS ORDERED: oxyCODONE/ACETAMINOPHEN 5mg/325mg TAB PO PRN (10:32)
[2020-03-10] MEDS ORDERED: ACETAMINOPHEN 325 MG TAB PO PRN (10:32)
--- NOTE | 2020-03-10 10:37 | Delivery Summary ---
Vaginal Delivery Summary Date of Service March 10, 2020 Pre-operative Diagnosis: at 37 3/7 weeks gestational hypertension Post-operative Diagnosis: same Procedure: craig for cervical ripening pitocin induction fse second degree laceration and repair EBL: 400cc Anesthesia: epidural Procedure: The patient pushed for 20 min to deliver a viable male infant in tio position. There was a tight nuchal cord and was clamped and cut on the perineum. The rest of the baby was then delivered without difficulty. The baby was vigorous. The nose and mouth were bulb suctioned and the infant was placed in the maternal abdomen for drying and attention. Cord blood and segment obtained. Placenta delivered spontaneous, intact with a three vessel cord. Cervix/sulci/rectum were intact. A second degree perineal laceration was repaired in the normal standard fashion. Hemostasis obtained with dilute pit ocin and fundal massage. Apgars were 8/9 . Mother and baby doing well at the end of the delivery. Vaginal Delivery Summary and 2nd Degree LAC [facility] Vaginal Delivery Charge Delivery Type Details: and 2nd Degree LAC
[2020-03-10] MEDS ORDERED: DIPHTHERIA/TETANUS/PERTUSSIS 0.5 ML SYR/VIAL IM ONE (11:07)
[2020-03-10] MEDS ORDERED: SUPERCREAM 0.870% 15 GM JAR EXT PRN (11:07)
[2020-03-10] MEDS ORDERED: HYDROCORTISONE ACETATE 25 MG SUPP PR PRN (11:07)
[2020-03-10] MEDS ORDERED: OXYTOCIN 30 UNITS/500 ML BAG IV PRN (11:07)
[2020-03-10] MEDS ORDERED: bisacodyL 10 MG SUPP PR PRN (11:07)
--- NOTE | 2020-03-10 12:00 | Anesthesia Procedure Note ---
Date of Service March 10, 2020 Anesthesia Post Epidural Note Vital Signs Vital Signs: Temp Pulse Resp BP Pulse Ox 37 C 123 H 20 155/77 H 100 03/10/20 10:45 03/10/20 11:43 03/10/20 10:59 03/10/20 11:43 03/10/20 10:38 Notes Mental Status: alert / awake / arousable and participated in evaluation Nausea / Vomiting: adequately controlled Pain: adequately controlled Airway Patency, RR, SpO2: stable & adequate BP & HR: stable & adequate Hydration State: stable & adequate Neuraxial Anesthesia: was administered and sensory block is resolving Anesthetic Complications: no major complications apparent Epidural: Removed without complications and With tip intact
[2020-03-10] MEDS: IBUPROFEN 600 MG TAB PO PRN ×2 (14:06→19:30)
[2020-03-10] MEDS: BENZOCAINE 20% AER SPR 82.5 GM CAN EXT PRN (14:07)
[2020-03-10] MEDS: DOCUSATE SODIUM 100 MG CAP PO SCH (21:58)
[2020-03-11] MEDS: IBUPROFEN 600 MG TAB PO PRN ×5 (00:10→21:41)
[2020-03-11 06:35] LABS: Hematocrit (blood only) 32.2 % (37-47); Hemoglobin 10.9 g/dL (12.0-16.0)
--- NOTE | 2020-03-11 07:03 | Obstetrical Progress Note ---
Date of Service <Ean Ochoa MD - Last Filed: 03/11/20 07:35> March 11, 2020 Assessment & Plan <Ean Ochoa MD - Last Filed: 03/11/20 07:35> (1) : A/P: Andreia Bean is a 30 y/o female with PET on PPD#1 following IOL at 37+2 weeks. * Patient feels well today; eating well, voiding well, ambulating well * Pain well-controlled with ibuprofen 600mg q4h prn * PNL: Rh neg / antibody pos / RI / GBS neg / COVID neg * Routine care: OOB, ambulation, diet progression as tolerated * Will be seen back for a BP check within one week * After discharge, will have six-week follow-up with Dr. Marianna Mckeon <Ean Ochoa MD - Last Filed: 03/11/20 07:35> Andreia Bean is a 30 y/o female with PET on PPD#1 following IOL at 37+2 weeks. She reports feeling well overall this morning. Mild abdominal cramping and 3/10 pain well managed on analgesics. Voiding well. Tolerating meals overnight without difficulty. Patient has been able to ambulate some. Has persistent lochia with some improvement this morning. Currently . Review of Systems Denies fever or chills. Denies shortness of breath or cough. Denies chest pain. Denies breast pain. Denies dysuria. Denies leg pain or leg swelling. Denies headache or changes in vision. Physical Exam <Ean Ochoa MD - Last Filed: 03/11/20 07:35> General: alert, oriented, no acute distress Cardiac: regular rate and rhythm, no murmurs appreciated Respiratory: lungs clear to auscultation bilaterally a/p, no wheezes/rales/rhonchi, no increased work of breathing, symmetrical chest rise, no respiratory distress Abdomen: soft, minimally tender, nondistended, bowel sounds present Uterus: uterine fundus firm, palpable 5 cm below umbilicus Lower extremities: no lower extremity edema or swelling, no deep calf pain, Julia's negative bilaterally Results & Data ([facility]) <Ean Ochoa MD - Last Filed: 03/11/20 07:35> Vital Signs (Past 12 Hours) Vital Signs Temp Pulse Resp BP Pulse Ox 03/11/20 03:40 36.7 C 100 H 16 136/86 97 03/11/20 00:10 36.4 C L 91 H 17 122/82 96 03/10/20 20:50 36.8 C 102 H 16 137/87 96 <Avril Cabral MD, FACOG - Last Filed: 03/11/20 07:57> Co-Signing Physician Notes Resident Physician Supervision Note: I interviewed and examined the patient. Discussed with Dr. Ochoa and agree with findings and plan as documented in the note. Any exceptions or clarifications are listed here: Doing well. Pressures are controlled. No s/s of worsening disease. Plan monitoring today and likely home tomorrow. Documented By: Avril Cabral MD, FACOG Resident Activity Tracking <Ean Ochoa MD - Last Filed: 03/11/20 07:35> Resident Involvement: Resident Care Provided Care Provided: OB Delivery
[2020-03-11] MEDS: DOCUSATE SODIUM 100 MG CAP PO SCH ×2 (08:18→20:47)
[2020-03-11] MEDS: PRENATAL VITAMIN 1 TAB PO SCH (08:18)
[2020-03-11] MEDS ORDERED: bisacodyL 5 MG TABEC PO SCH (20:00)
[2020-03-12] MEDS: IBUPROFEN 600 MG TAB PO PRN (06:31)
--- NOTE | 2020-03-12 07:32 | Obstetrical Progress Note ---
Date of Service March 12, 2020 Assessment & Plan (1) examination following vaginal delivery: (2) Gestational hypertension: (3) Need for rhogam due to Rh negative mother: stable for d/c home. had her rhogam, and ri. instructions reviewed. f/u 6wk pp. bps are ok and therefore do not need to come in for bp check but if any concerning sx which were reviewed come up she is to call and be seen. she says she has home bp machine to monitor as well. Day #:: 2 Subjective Ambulation: ambulating normally Voiding: no voiding problems Diet Tolerance:: regular diet Feeding Type:: breast feeding no pain issues. no carter or visual change. Physical Exam Constitutional WD/WN, vitals as above Respiratory normal respiratory effort, lungs clear to auscultation Cardiovascular Rate/Rhythm: regular rate and regular rhythm Gastrointestinal (Abdomen) Inspection/Auscultation: abdomen normal to inspection Percussion/Palpation: abdomen soft; abdomen nontender Fundus firm 2cm down Musculoskeletal nt calves no edema Neurologic grossly normal Psychiatric A+Ox3, euthymic affect Results & Data ([facility]) Vital Signs (Past 12 Hours) Vital Signs Temp Pulse Resp BP Pulse Ox 03/12/20 01:15 98.4 F 88 16 135/88 97 03/11/20 21:09 93 H 138/87
[2020-03-12] MEDS: BENZOCAINE 20% AER SPR 82.5 GM CAN EXT PRN (08:05)
[2020-03-12] MEDS: DOCUSATE SODIUM 100 MG CAP PO SCH (08:07)
[2020-03-12] MEDS: PRENATAL VITAMIN 1 TAB PO SCH (08:07)
== END 2020-03-12 11:35 | disposition home or self-care (01) | DRG 807 ==
LOC: OPB 15:44 → 4S1 15:45 → 4S2 03-10 13:55

== ENCOUNTER 2024-02-10 07:38 | Inpatient (IN) ==
[2024-02-10] MEDS ORDERED: OXYTOCIN 30 UNITS/NSS 30 UNITS/500 ML BAG IV PRN ×2 (08:54→19:35)
[2024-02-10] MEDS ORDERED: LIDOCAINE 1% LOCAL 20 ML VIAL INFIL PRN (08:54)
[2024-02-10] MEDS: SODIUM CHLORIDE 0.9% 1,000 ML IV SCH (09:17)
[2024-02-10] MEDS: OXYTOCIN 30 UNITS/NSS 30 UNITS/500 ML BAG IV PRN (09:20)
--- NOTE | 2024-02-10 09:24 | History & Physical Report ---
"Date of Service February 10, 2024 Assessment & Plan (1) Encounter for induction of labor: (2) Chronic hypertension during : (3) Hypothyroidism during : Plan Andreia is a 33yo at 38w2d admitted for IOL. Craig bulb to be placed today. Receiving Pitocin, IV fluids. Monitor vital signs, consider labetalol for BP >160/110 or if symptomatic. Monitor Hemoglobin, currently 11, asymptomatic AROM when indicated. Monitor tracing, presently category I Admission and Anticipated Discharge Date Admission Date: February 10, 2024 History of Present Illness Chief Complaint: IOL Primary Care Provider: NO PCP Andreia is a 33yo at 38w2d admitted for IOL. Feeling well this morning, no significant pain or concerns at this time. Endorses uncomplicated aside from gestational hypertension which has not been controlled with an antihypertensive. Only taking baby aspirin, levothyroxine 75mcg, and vitamin daily. States baby has been moving regularly. Denies any significant vaginal bleeding or fluid. Endorses last bowel movement was on Saturday02/08/24, states 2-3 days without BM is normal for her in . States she has been eating and drinking well. Denies any headache, dizziness, vision changes, chest pain, SOB, nausea/vomiting/diarrhea, LE pain/redness/swelling, LE tingling/numbness. GBS neg, T. Pallidum Ab neg. Rh- received Rhogam 12/02/23. Allergies Allergy/AdvReac Type Severity Reaction Status Date / Time amoxicillin Allergy Intermediate Hives Verified 02/07/24 14:39 pollen extracts Allergy Mild Stuffiness Verified 02/07/24 14:39 Home Medications Medication Instructions Recorded Confirmed Type prenat.vits,sarah,[id number] 1 tab PO DAILY 08/31/19 02/10/24 History levothyroxine 75 mcg tablet 75 mcg PO .COMPLEX #90 tabs 02/05/24 02/10/24 Rx aspirin 81 mg chewable tablet 81 mg PO DAILY 02/10/24 02/10/24 History Patient History Medical History (Updated 02/10/24 @ 10:41 by Bird Ley DO) Gestational hypertension Encounter for pre-operative examination History of chicken pox Surgical History No history of previous surgery Family History Grandfather (Maternal) Diabetes Mother Hypertension Grandmother (Paternal) Hypertension Grandmother (Maternal) Ovarian cancer Denies family history of Breast cancer Colorectal cancer Social History Smoking Status: Never smoker Do You Dip or Chew Tobacco: No; Hx Alcohol Use: No Hx Substance Use: No Preferred Language: Cymro Communication Ability: Effective Fountain Manager Required: No Beliefs That Will Affect Care: None marital status: marital status details: Ryan Bean (31) [phone] Current Living Situation: Spouse and Family Current Living Situation Comment: Pt lives with , Sd and 2 sons - Robinson and Truman current occupational status: employed current occupation: teacher [employer] Other Information That Helps Us Care for You: No Feels Safe at Home: Yes Safety Concerns: Feels Safe At This Time Assistive Devices: Contacts and Glasses Review of Systems denies recent fever, body aches, chills, sweats, vision changes, dizziness, numbness/tingling of extremities Physical Exam Physical Exam: General: A&Ox3, resting comfortably in bed, in no apparent distress, nontoxic in appearance Skin: warm, dry, intact HEENT: EOM intact, PERRL b/l Cardiovascular: tachycardic regular rhythm, +s1/s2, no murmurs/rubs/gallops Pulmonary: clear to auscultation b/l, no wheezes/rales/rhonchi GI/Abd: +BS, gravid, nontender to palpation Extremities: no significant swelling or erythema of b/l LE, nontender to palpation, negative Julia's b/l; warm, no clubbing or cyanosis Neuro: no facial droop, speech intact, moves all extremities on command Cervical: 0.5|25|-3, est. weight 7-8lbs : FHR baseline 155, moderate variability, accels present, decels absent Results & Data Vital Signs (Past 12 Hours) Vital Signs Temp Pulse Resp BP O2 Del Method 02/10/24 09:00 107 H 142/88 H 02/10/24 08:26 131 H 152/83 H 02/10/24 08:25 122 H 147/101 H 02/10/24 08:16 36.6 C 18 Room Air 02/10/24 07:47 133 H 136/89 Laboratory Results Abnormal lab results 02/10/24 Range/Units 09:10 RBC 3.65 L (4.20-5.40) M/uL Hgb 11.0 L (12.0-16.0) g/dl Hct 33.5 L (37.0-47.0) % Chloride 110 H (98-107) mmol/L Creatinine 0.54 L (0.6-1.2) mg/dl Glucose 106 H (70-99(Fasting)) mg/dl Alkaline Phosphatase 105 H (34-104) U/L Medications Administered Oxytocin (Pitocin 30 Units/Nss) 30 units in 500 mls @ 3 mls/hr IV .Q24H PRN; Protocol PRN Reason: Labor Induction/Augmentation Stop: 02/12/24 08:53 Last Titration: 02/10/24 09:50 Dose: 0.18 units/hr, 3 mls/hr Documented By: Admin: 02/10/24 09:20 Dose: 0.06 units/hr, 1 mls/hr Documented By: EMANUEL Co-signed By: DOUGLAS Sodium Chloride (Nss) 1,000 mls @ 50 mls/hr IV .Q20H CHERYL Stop: 02/11/24 09:14 Last Admin: 02/10/24 09:17 Dose: 50 mls/hr Documented By: EMANUEL Supervising Physician Co-Signing Physician Notes Resident Physician Supervision Note: I interviewed and examined the patient. Discussed with Dr. Ley and agree with findings and plan as documented in the note. Any exceptions or clarifications are listed here: 33yo at 38wks for planned induction for indication of chtn in . She has not been on meds. She has unfavorable cx and I was delayed in placing craig balloon due to emergency and so pitocin began. Noting some ctx. No rom, no vb. +FM. Denies carter or visual change. No ruq pain. PNL rh neg, ri, gbs neg Exam: Cor rrr, Lungs ctab, Abd soft gravid nt, efw 7-8#. ext no edema. dtrs +3 patellar, no clonus. sve ft/25/-3 post, med. fhts categ 1. pit at 7, toco q3 PROCEDURE: sse cx visualized, grasped on ant lip with ring forcep, craig through os and balloon inflated with 40cc sterile water. Spec removed, craig taped to leg. pt juliocesar well. Will continue with pitocin induction as planned. Arom when appropriate. Epidural when pt desires. FHTs categ 1. Labs reviewed. Documented By: Candace Hernandez MD, FACOG Resident Activity Tracking Resident Involvement: Resident Care Provided Care Provided: OB Delivery (3) Hypothyroidism during Trimester: first trimester Qualified Code(s): O99.281 - Endocrine, nutritional and metabolic diseases complicating , first trimester; E03.9 - Hypothyroidism, unspecified"
[2024-02-10 09:36] LABS: Hematocrit (blood only) 33.5 % (37.0-47.0); Mean Corpuscular Hemoglobin 30.1 pg (25.0-34.0); Mean Corpuscular Hgb Conc 32.8 g/dL (32.0-36.0); Mean Corpuscular Volume 91.8 fL (80.0-100.0); Mean Platelet Volume 11.9 fL (9.4-12.4); Platelet Count 194 K/uL (130-400); RDW Coefficient of Variation 13.1 % (11.5-14.5); Red Blood Count 3.65 M/uL (4.20-5.40); White Blood Count 7.29 K/ul (4.8-10.8)
[2024-02-10 09:48] LABS: Albumin Globulin Ratio 1.2 (0.9-2); Albumin Level 3.4 gm/dl (3.4-5.0); BUN Creatinine Ratio 14.8 (10-20); Bilirubin,Total 0.3 mg/dl (0.2-1.0); Calcium 8.6 mg/dl (8.6-10.3); Creatinine Clr Calc Pharmacy 146.5 ml/min; Globulin 2.8 gm/dl (2.5-4.0); Potassium 3.8 mmol/L (3.5-5.1); Total Protein 6.2 gm/dl (6.0-8.3)
--- NOTE | 2024-02-10 11:56 | Labor Progress Brief Note ---
Date of Service February 10, 2024 Subjective see admit note for procedure billed in this note due to no billing avail in other note Assessment & Plan (1) Non-dilated cervix in term : (2) 38 weeks gestation of : (3) Chronic hypertension during : (4) Encounter for induction of labor: Plan see prior note for procedure. this note opened to be able to do billing Admission and Anticipated Discharge Date Admission Date: February 10, 2024 Results & Data Vital Signs (Past 12 Hours) Vital Signs Temp Pulse Resp BP O2 Del Method 02/10/24 11:27 103 H 140/92 02/10/24 11:00 18 02/10/24 11:00 98.4 F 18 02/10/24 10:57 108 H 139/84 02/10/24 10:30 16 02/10/24 10:30 16 02/10/24 10:27 102 H 02/10/24 10:27 153/92 H 02/10/24 10:27 107 H 163/96 H 02/10/24 10:00 18 02/10/24 10:00 18 02/10/24 09:59 102 H 152/93 H 02/10/24 09:29 127 H 153/89 H 02/10/24 09:28 120 H 141/101 H 02/10/24 09:00 107 H 142/88 H 02/10/24 08:26 131 H 152/83 H 02/10/24 08:25 122 H 147/101 H 02/10/24 08:16 97.9 F 18 Room Air 02/10/24 07:47 133 H 136/89 Coding Level of Care Code None Diagnoses Non-dilated cervix in term O34.40 38 weeks gestation of Z3A.38 Chronic hypertension during O10.919 Encounter for induction of labor Z34.90 CPT Codes Misx Procedure Codes - 32573 Placement of cervical dilator: 54864 Placement of cervical dilator ([id number]) [employer] G[employer]PERATOR Miscellaneous Codes Misx Procedure Codes 41530 Placement of cervical dilator
--- NOTE | 2024-02-10 14:07 | Labor Progress Brief Note ---
Date of Service February 10, 2024 Subjective pt comfortable, notes craig has not fallen out. pit still at 7 Assessment & Plan (1) Chronic hypertension during : (2) Encounter for induction of labor: Plan ctx palpably mild so despite frequency if fetus stable need to increase pitocin dosing. reviewed with pt and nurse. fhts categ1. arom when able. Admission and Anticipated Discharge Date Admission Date: February 10, 2024 Physical Exam Constitutional: WD/WN, vitals as above Genitourinary: OB Exam Monitor Tracing: + external FHT monitor used, + external uterine monitor used (q2-3 pit at 7), + category I and + normal FHT variability Results & Data Vital Signs (Past 12 Hours) Vital Signs Temp Pulse Resp BP O2 Del Method 02/10/24 13:58 90 128/82 02/10/24 13:28 112 H 138/79 02/10/24 13:00 18 02/10/24 13:00 18 02/10/24 12:30 18 02/10/24 12:30 18 02/10/24 12:27 113 H 133/85 02/10/24 12:00 16 02/10/24 12:00 16 02/10/24 11:57 97 H 133/85 02/10/24 11:27 103 H 140/92 02/10/24 11:00 18 02/10/24 11:00 98.4 F 18 02/10/24 10:57 108 H 139/84 02/10/24 10:30 16 02/10/24 10:30 16 02/10/24 10:27 102 H 02/10/24 10:27 153/92 H 02/10/24 10:27 107 H 163/96 H 02/10/24 10:00 18 02/10/24 10:00 18 02/10/24 09:59 102 H 152/93 H 02/10/24 09:29 127 H 153/89 H 02/10/24 09:28 120 H 141/101 H 02/10/24 09:00 107 H 142/88 H 02/10/24 08:26 131 H 152/83 H 02/10/24 08:25 122 H 147/101 H 02/10/24 08:16 97.9 F 18 Room Air 02/10/24 07:47 133 H 136/89 Coding Level of Care Code None Diagnoses Chronic hypertension during O10.919 Encounter for induction of labor Z34.90
[2024-02-10] MEDS ORDERED: fentaNYL citrate PF 100 MCG/2 ML VIAL ONE (14:35)
[2024-02-10] MEDS ORDERED: ePHEDrine sulfate 50 MG/ML AMP ONE (14:35)
[2024-02-10] MEDS: fentANYL 2 MCG/ML BUPIVacaine 0.125%-NSS 100ML BAG ONE (15:23)
[2024-02-10] MEDS: BUPIVACAINE 0.25% PF 30 ML VIAL ONE (15:29)
[2024-02-10] MEDS: LIDOCAINE 2%/EPINEPHRINE 1:200,000 20 ML PF ONE (15:29)
[2024-02-10] MEDS: SODIUM CHLORIDE 0.9% PF INJ 10 ML VIAL ONE (15:29)
[2024-02-10] MEDS ORDERED: PROMETHAZINE 6.25 MG/50.25 ML BAG IV PRN (15:31)
[2024-02-10] MEDS ORDERED: diphenhydrAMINE 50 MG/ML VIAL IV PRN (15:31)
[2024-02-10] MEDS ORDERED: NALOXONE HCL 0.4 MG/1 ML VIAL/CARP IV PRN (15:31)
[2024-02-10] MEDS ORDERED: NALOXONE HCL 1 MG in SODIUM CHLORIDE 0.9% 1,000 ML IV PRN (15:31)
[2024-02-10] MEDS ORDERED: NALBUPHINE HCL INJ 10 MG/ML AMP IV PRN (15:31)
[2024-02-10] MEDS ORDERED: fentaNYL citrate PF 100 MCG/2 ML VIAL EPI PRN (15:31)
[2024-02-10] MEDS ORDERED: LIDOCAINE 2% MPF LOCAL 5 ML VIAL EPI PRN (15:31)
[2024-02-10] MEDS ORDERED: BUPIVACAINE 0.25% PF 30 ML VIAL EPI PRN (15:31)
[2024-02-10] MEDS ORDERED: fentANYL 2 MCG/ML BUPIVacaine 0.125%-NSS 100ML BAG EPI PRN (15:31)
[2024-02-10] MEDS ORDERED: ONDANSETRON INJ 2 MG/ML 2 ML VIAL IV PRN (15:31)
[2024-02-10] MEDS ORDERED: ePHEDrine sulfate 50 MG/ML AMP IV PRN (15:31)
[2024-02-10] MEDS ORDERED: ROPIVACAINE 0.5% PF 5 MG/ML 20 ML VIAL EPI PRN (15:31)
[2024-02-10] MEDS ORDERED: SODIUM CHLORIDE 0.9% PF INJ 10 ML VIAL EPI PRN (15:31)
--- NOTE | 2024-02-10 15:31 | Anesthesiology Consultation ---
Date of Service February 10, 2024 Assessment & Plan Chart Review Chart Review: Patient NOT seen in Pre Admission Testing and Acceptable Risk for Labor Epidural Consults Requested none ASA ASA2 Proposed Anesthesia Anesthesia Type: Labor Epidural Risk / Benefits Reviewed With: PT / POA / Parent / Guardian, Accepts Plan and Informed Consent Obtained History Height/Weight Height: 5 ft 1 in Weight: 83.461 kg Allergies Allergy/AdvReac Type Severity Reaction Status Date / Time amoxicillin Allergy Intermediate Hives Verified 02/07/24 14:39 pollen extracts Allergy Mild Stuffiness Verified 02/07/24 14:39 Medications Home Medications Medication Instructions Recorded Confirmed Last Taken prenat.vits,sarah,oqm-gcdt-ajjle 1 tab PO DAILY 08/31/19 02/10/24 02/09/24 08:00 levothyroxine 75 mcg tablet 75 mcg PO .COMPLEX #90 tabs 02/05/24 02/10/24 02/10/24 06:00 aspirin 81 mg chewable tablet 81 mg PO DAILY 02/10/24 02/10/24 02/09/24 08:00 Active Medications Generic Name Dose Route Start Last Admin Trade Name Freq PRN Reason Stop Dose Admin Oxytocin 30 units in 500 mls @ 9 mls/hr 02/10/24 08:54 02/10/24 13:40 Pitocin 30 Units/Nss IV 02/12/24 08:53 0.54 units/hr .Q24H PRN 9 mls/hr Labor Induction/Augmentation Titration Protocol 0.54 UNITS/HR Sodium Chloride 1,000 mls @ 50 mls/hr 02/10/24 09:15 02/10/24 15:29 Nss IV 02/11/24 09:14 50 mls/hr .Q20H CHERYL Administration Past Medical History Medical History (Updated 02/10/24 @ 11:55 by Candace Hernandez MD, FACOG) Gestational hypertension Encounter for pre-operative examination History of chicken pox Exercise / Class Metabolic Activity II 4-5 Yardwork/Stairs/Walk up hill Past Family History Family History Grandfather (Maternal) Diabetes Mother Hypertension Grandmother (Paternal) Hypertension Grandmother (Maternal) Ovarian cancer Denies family history of Breast cancer Colorectal cancer Past Surgical History Surgical History No history of previous surgery Past Anesthesia History No Hx of Anesthesia Complications and No Family Hx of Anesthesia Complications History of PONV No Hx of PONV and No Hx of Motion Sickness Social History Smoking Status: Never smoker Do You Dip or Chew Tobacco: No Hx Alcohol Use: No Hx Substance Use: No substance use type: does not use Physical Exam Vital Signs Last Vital Signs Temp 36.6 C 02/10/24 15:00 Pulse 101 H 02/10/24 15:30 Resp 18 02/10/24 15:00 BP 150/82 H 02/10/24 15:30 Pulse Ox 100 02/10/24 15:28 O2 Del Method Room Air 02/10/24 08:16 ENMT Mouth: no dentition abnormality Thyromental Distance: > or= 3.5 Finger Breadths Mallampati Class: II Neck normal visual inspection Respiratory normal respiratory effort Auscultation: lungs clear to auscultation bilaterally Cardiovascular Rate/Rhythm: regular rate and regular rhythm Psychiatric Orientation: alert Testing Laboratory Results 02/10/24 09:10 02/10/24 09:10
[2024-02-10] MEDS: fentaNYL citrate PF 100 MCG/2 ML VIAL EPI STA (15:38)
[2024-02-10] MEDS: SODIUM CHLORIDE 0.9% PF INJ 10 ML VIAL EPI STA (15:38)
[2024-02-10] MEDS: LIDOCAINE 2%/EPINEPHRINE 1:200,000 20 ML PF EPI STA (15:38)
[2024-02-10] MEDS: BUPIVACAINE 0.25% PF 30 ML VIAL EPI STA (15:38)
--- NOTE | 2024-02-10 17:01 | Labor Progress Brief Note ---
Date of Service February 10, 2024 Subjective comfortable Assessment & Plan (1) Encounter for induction of labor: (2) Chronic hypertension during : Plan good cx change. fhts categ 1. Cont with pitocin. Admission and Anticipated Discharge Date Admission Date: February 10, 2024 Physical Exam Constitutional: WD/WN, vitals as above Genitourinary: Manual OB Exam: + cervical dilation 7 cm, + cervical effacement 80% and + station -1 OB Exam Monitor Tracing: + external FHT monitor used, + external uterine monitor used (q2-3 pit at 9), + category I and + normal FHT variability Results & Data Vital Signs (Past 12 Hours) Vital Signs Temp Pulse Resp BP Pulse Ox O2 Del Method 02/10/24 16:58 124 H 100 02/10/24 16:53 101 H 132/74 100 02/10/24 16:48 91 H 100 02/10/24 16:43 93 H 100 02/10/24 16:38 100 02/10/24 16:38 92 H 02/10/24 16:38 100 H 131/79 02/10/24 16:33 101 H 100 02/10/24 16:30 16 02/10/24 16:30 16 02/10/24 16:28 109 H 100 02/10/24 16:23 100 02/10/24 16:23 99 H 02/10/24 16:23 90 145/95 H 02/10/24 16:18 94 H 100 02/10/24 16:13 99 H 100 02/10/24 16:08 102 H 100 02/10/24 16:03 102 H 100 02/10/24 15:58 102 H 100 02/10/24 15:53 96 H 100 02/10/24 15:51 101 H 164/88 H 02/10/24 15:48 90 100 02/10/24 15:46 117 H 171/96 H 02/10/24 15:43 92 H 100 02/10/24 15:42 100 H 151/90 H 02/10/24 15:41 110 H 142/100 H 02/10/24 15:38 96 H 100 02/10/24 15:34 105 H 156/95 H 02/10/24 15:33 98 H 100 02/10/24 15:32 105 H 150/86 H 02/10/24 15:30 101 H 18 150/82 H 02/10/24 15:28 100 02/10/24 15:28 108 H 02/10/24 15:28 114 H 164/88 H 02/10/24 15:26 110 H 155/86 H 02/10/24 15:24 103 H 165/92 H 02/10/24 15:23 108 H 100 02/10/24 15:22 99 H 155/90 H 02/10/24 15:20 102 H 163/93 H 02/10/24 15:18 119 H 157/95 H 100 02/10/24 15:16 105 H 161/100 H 02/10/24 15:13 113 H 100 02/10/24 15:08 93 H 100 02/10/24 15:03 101 H 100 02/10/24 15:00 18 02/10/24 15:00 97.9 F 18 02/10/24 14:58 100 02/10/24 14:58 102 H 02/10/24 14:58 93 H 157/96 H 02/10/24 14:53 83 100 02/10/24 14:48 97 H 100 02/10/24 14:43 104 H 100 02/10/24 14:28 105 H 133/85 02/10/24 13:58 90 128/82 02/10/24 13:28 112 H 138/79 02/10/24 13:00 18 02/10/24 13:00 18 02/10/24 12:30 18 02/10/24 12:30 18 02/10/24 12:27 113 H 133/85 02/10/24 12:00 16 02/10/24 12:00 16 02/10/24 11:57 97 H 133/85 02/10/24 11:27 103 H 140/92 02/10/24 11:00 18 02/10/24 11:00 98.4 F 18 02/10/24 10:57 108 H 139/84 02/10/24 10:30 16 02/10/24 10:30 16 02/10/24 10:27 102 H 02/10/24 10:27 153/92 H 02/10/24 10:27 107 H 163/96 H 02/10/24 10:00 18 02/10/24 10:00 18 02/10/24 09:59 102 H 152/93 H 02/10/24 09:29 127 H 153/89 H 02/10/24 09:28 120 H 141/101 H 02/10/24 09:00 107 H 142/88 H 02/10/24 08:26 131 H 152/83 H 02/10/24 08:25 122 H 147/101 H 02/10/24 08:16 97.9 F 18 Room Air 02/10/24 07:47 133 H 136/89 Coding Level of Care Code None Diagnoses Encounter for induction of labor Z34.90 Chronic hypertension during O10.919
--- NOTE | 2024-02-10 19:26 | Delivery Summary ---
Vaginal Delivery Summary Date of Service February 10, 2024 Vaginal Delivery Summary and 2nd Degree LAC Patient was apparently having variable decels and I was notified about them as well as some elevated bps at 648pm. I came out to evaluate patient and on my arrival, bradycardia noted. Pit stopped. O2 to be applied. SVE c/c/+2. Readied for delivery and in one push delivered viable female Apgars 8,9 via , over 2nd degree perineal laceration. Loos nuchal x 1 reduced. Shoulders and body then delivered rapidly. Large gush of blood fluid noted, with small clots. M/N bulb suctioned, baby did cry at . Cord clamped at 30sec and infant to maternal abdomen. The cord was then doubly clamped and cut. Bruising of face noted. Baby to radiant warmer for drying and attention. Placenta delivered spontaneously and intact, three-vessel cord. Hemostasis achieved with dilute pitocin and uterine massage and drainage of the bladder for approximately 20 cc under sterile conditions. Cervix and sulci intact. Laceration repaired in layers with 3-0 vicryl. EBL 50 cc. Mother and baby stable in recovery. Cord blood and cord gases obtained. Review of tracing notes early and variable decels and bradycardia actually only 2-3min before delivery. [facility] Vaginal Delivery Charge Delivery Type Details: and 2nd Degree LAC
[2024-02-10] MEDS ORDERED: oxyCODONE/ACETAMINOPHEN 5mg/325mg TAB PO PRN (19:35)
[2024-02-10] MEDS ORDERED: HYDROCORTISONE ACETATE 25 MG SUPP PR PRN (19:35)
[2024-02-10] MEDS ORDERED: DIPHTHER/TETAN/PERTUS Vaccine (Tdap, Adol/Adult) 0.5mL IM ONE (19:35)
[2024-02-10 20:25] LABS: Base Excess Cord Venous Blood -4.3 mEq/L (-7.7-1.9); Cord Venous Blood HCO3 23 mmol/L (18.4-26.8); Cord Venous Blood PCO2 50 mmHg (30.4-57.2); Cord Venous Blood PO2 < 20 mmHg (14.1-43.3); Cord Venous Blood pH 7.27 (7.20-7.44); O2 Saturation Cord Venous Bld < 60.0 % (<68)
[2024-02-10] MEDS: IBUPROFEN 600 MG TAB PO PRN (21:23)
[2024-02-10] MEDS: BENZOCAINE 20% SPRY 85 APPLN/85 GM CAN EXT PRN (21:23)
[2024-02-10] MEDS: ACETAMINOPHEN 325 MG TAB PO PRN (21:23)
--- NOTE | 2024-02-10 23:53 | Anesthesia Procedure Note ---
Date of Service February 10, 2024 Anesthesia Post Epidural Note Vital Signs Vital Signs: Temp Pulse Resp BP Pulse Ox O2 Del Method 36.7 C 125 H 20 135/92 98 Room Air 02/10/24 23:15 02/10/24 23:15 02/10/24 23:15 02/10/24 23:15 02/10/24 23:15 02/10/24 23:15 Pain Intensity Abdomen: Pain Intensity: 0 Notes Mental Status: alert / awake / arousable Nausea / Vomiting: adequately controlled Pain: adequately controlled Airway Patency, RR, SpO2: stable & adequate BP & HR: stable & adequate Hydration State: stable & adequate Neuraxial Anesthesia: was administered and sensory block is resolving Anesthetic Complications: no major complications apparent and Pt Satisfied with anesthetic care Epidural: Removed without complications and With tip intact
[2024-02-11] MEDS: LEVOTHYROXINE SODIUM 75 MCG TABLET PO SCH (06:03)
--- NOTE | 2024-02-11 06:32 | Obstetrical Progress Note ---
Date of Service <Bird Ley DO - Last Filed: 02/11/24 08:04> February 11, 2024 Assessment & Plan <Bird ChelseaSandy Ley DO - Last Filed: 02/11/24 08:04> (1) state: (2) Perineal laceration during delivery: Perineal laceration degree: second degree Qualified Code(s): O70.1 - Second degree perineal laceration during delivery (3) Hypothyroidism during : Trimester: first trimester Qualified Code(s): O99.281 - Endocrine, nutritional and metabolic diseases complicating , first trimester; E03.9 - Hypothyroidism, unspecified (4) Chronic hypertension during : (5) Need for rhogam due to Rh negative mother: Plan Andreia is a 33yo [id number] day 1 s/p complicated by 2nd degree perineal laceration. BP elevated, asymptomatic, watch for symptoms - treat for >150/100 Continue care Encourage ambulation and Pain control with ibuprofen, Tylenol as needed Hemoglobin 11, asymptomatic Discharge home tomorrow 02/12/24, followup with Dr. Hernandez in 6wks. <Candace Hernandez MD, FACOG - Last Filed: 02/11/24 08:27> (1) state: (2) Perineal laceration during delivery: (3) Hypothyroidism during : (4) Chronic hypertension during : (5) Need for rhogam due to Rh negative mother: Subjective <Bird ChelseaSandy Ley DO - Last Filed: 02/11/24 08:04> Andreia is a 33yo [id number] day 1 s/p complicated by 2nd degree perineal laceration. Feeling well this morning and slept well overnight. Pain: mostly on R flank, no pain L flank, otherwise minor pain/soreness of a bdomen Ambulation: yes Gas: yes Lochia: small, decreasing Diet: tolerating Feeds: breast and bottle Denies: denies headache, chest pain, SOB, n/v/d, LE pain/swelling. Review of Systems denies fever, body aches, chills, sweats, vision changes, significant vaginal bleeding/discharge Physical Exam <Bird Ley DO - Last Filed: 02/11/24 08:04> General: A&Ox3, resting comfortably in bed, in no apparent distress, nontoxic in appearance Skin: warm, dry, intact HEENT: EOM intact, PERRL b/l Cardiovascular: tachycardic regular rhythm, +s1/s2, no murmurs/rubs/gallops Pulmonary: clear to auscultation b/l, no wheezes/rales/rhonchi GI/Abd: +BS, mild TTP, uterine fundus firm and midline, 3 fingerwidths superior to umbilicus Extremities: no significant swelling or erythema of b/l LE, nontender to palpation, negative Julia's b/l; warm, no clubbing or cyanosis Neuro: no facial droop, speech intact, moves all extremities on command Results & Data <Bird Ley DO - Last Filed: 02/11/24 08:04> Vital Signs (Past 12 Hours) Vital Signs Temp Pulse Pulse Pulse Resp BP BP 02/11/24 03:30 36.7 C 103 H 20 154/87 H 02/10/24 23:15 36.7 C 125 H 20 135/92 02/10/24 21:40 36.9 C 106 H 106 H 20 138/96 02/10/24 21:23 130 H 02/10/24 21:20 37.4 C 20 02/10/24 21:20 120 H 138/83 02/10/24 21:18 123 H 02/10/24 21:13 130 H 02/10/24 21:08 116 H 02/10/24 21:05 120 H 137/86 02/10/24 21:03 122 H 02/10/24 20:58 117 H 02/10/24 20:53 126 H 02/10/24 20:50 20 02/10/24 20:50 113 H 148/81 H 02/10/24 20:48 110 H 02/10/24 20:43 122 H 02/10/24 20:38 109 H 02/10/24 20:35 112 H 149/88 H 02/10/24 20:33 115 H 02/10/24 20:28 112 H 02/10/24 20:23 108 H 02/10/24 20:20 20 02/10/24 20:20 112 H 142/87 H 02/10/24 20:18 109 H 02/10/24 20:13 115 H 02/10/24 20:08 102 H 02/10/24 20:05 18 02/10/24 20:05 112 H 140/84 02/10/24 20:03 109 H 02/10/24 19:58 112 H 02/10/24 19:53 124 H 02/10/24 19:50 18 02/10/24 19:50 122 H 149/104 H 02/10/24 19:48 120 H 02/10/24 19:43 125 H 02/10/24 19:38 108 H 02/10/24 19:35 20 02/10/24 19:35 114 H 140/92 02/10/24 19:33 119 H 02/10/24 19:28 138 H 02/10/24 19:27 134 H 02/10/24 19:23 123 H 02/10/24 19:20 37.1 C 20 02/10/24 19:20 97 H 154/83 H 02/10/24 19:18 127 H 02/10/24 19:13 117 H 02/10/24 19:08 112 H 02/10/24 19:07 112 H 152/87 H 02/10/24 19:03 129 H 02/10/24 18:58 133 H 02/10/24 18:53 146 H 145/91 H 02/10/24 18:48 133 H 02/10/24 18:43 02/10/24 18:43 128 H 02/10/24 18:43 129 H 171/94 H 02/10/24 18:42 133 H 205/98 H 02/10/24 18:38 127 H 191/100 H 02/10/24 18:33 125 H 02/10/24 18:28 123 H Pulse Ox O2 Del Method 02/11/24 03:30 99 Room Air 02/10/24 23:15 98 Room Air 02/10/24 21:40 99 Room Air 02/10/24 21:23 98 02/10/24 21:20 02/10/24 21:20 02/10/24 21:18 98 02/10/24 21:13 99 02/10/24 21:08 98 02/10/24 21:05 02/10/24 21:03 98 02/10/24 20:58 99 02/10/24 20:53 98 12/23/24 20:50 02/10/24 20:50 02/10/24 20:48 99 02/10/24 20:43 99 02/10/24 20:38 100 02/10/24 20:35 02/10/24 20:33 100 02/10/24 20:28 100 02/10/24 20:23 100 02/10/24 20:20 02/10/24 20:20 02/10/24 20:18 98 02/10/24 20:13 99 02/10/24 20:08 99 02/10/24 20:05 02/10/24 20:05 02/10/24 20:03 100 02/10/24 19:58 100 02/10/24 19:53 100 02/10/24 19:50 02/10/24 19:50 02/10/24 19:48 100 02/10/24 19:43 100 02/10/24 19:38 100 02/10/24 19:35 02/10/24 19:35 02/10/24 19:33 100 02/10/24 19:28 100 02/10/24 19:27 94 02/10/24 19:23 100 02/10/24 19:20 02/10/24 19:20 02/10/24 19:18 100 02/10/24 19:13 100 02/10/24 19:08 100 02/10/24 19:07 02/10/24 19:03 100 02/10/24 18:58 100 02/10/24 18:53 100 02/10/24 18:48 100 02/10/24 18:43 100 02/10/24 18:43 02/10/24 18:43 02/10/24 18:42 02/10/24 18:38 100 02/10/24 18:33 100 02/10/24 18:28 100 Laboratory Results Abnormal lab results 02/10/24 Range/Units 09:10 RBC 3.65 L (4.20-5.40) M/uL Hgb 11.0 L (12.0-16.0) g/dl Hct 33.5 L (37.0-47.0) % Chloride 110 H (98-107) mmol/L Creatinine 0.54 L (0.6-1.2) mg/dl Glucose 106 H (70-99(Fasting)) mg/dl Alkaline Phosphatase 105 H (34-104) U/L Supervising Physician <Candace Hernandez MD, FACOG - Last Filed: 02/11/24 08:27> Co-Signing Physician Notes Resident Physician Supervision Note: I was present with Dr. Ley during the history and exam. I discussed the case with the resident and agree with the findings and plan as documented in the note. Any exceptions or clarifications are listed here: doing well. stable. bps noted. abd soft ff 2 down nt, ext nt calves. ppd#1 s/p , chtn, will need to watch bps to see if any meds indicated. routine care. needs rhogam. Documented By: Candace Hernandez MD, FACOG Resident Activity Tracking <Bird Ley, - Last Filed: 02/11/24 08:04> Resident Involvement: Resident Care Provided Care Provided: OB Delivery
[2024-02-11] MEDS: DOCUSATE SODIUM 100 MG CAP PO SCH (08:24)
[2024-02-11] MEDS: PRENATAL VITAMIN 1 TAB PO SCH (08:24)
[2024-02-11] MEDS: LABETALOL HCL 200 MG TAB PO SCH (15:59)
[2024-02-11 17:37] LABS: Hematocrit (blood only) 24.1 % (37.0-47.0); Hemoglobin 7.8 g/dl (12.0-16.0); Mean Corpuscular Hemoglobin 30.6 pg (25.0-34.0); Mean Corpuscular Hgb Conc 32.4 g/dL (32.0-36.0); Mean Corpuscular Volume 94.5 fL (80.0-100.0); Mean Platelet Volume 11.9 fL (9.4-12.4); Platelet Count 180 K/uL (130-400); RDW Coefficient of Variation 13.4 % (11.5-14.5); RDW Standard Deviation 45.5 fL (36.4-46.3); Red Blood Count 2.55 M/uL (4.20-5.40); White Blood Count 10.71 K/ul (4.8-10.8)
[2024-02-11 17:46] LABS: Albumin Globulin Ratio 1.2 (0.9-2); Albumin Level 2.8 gm/dl (3.4-5.0); BUN Creatinine Ratio 11.3 (10-20); Bilirubin,Total 0.3 mg/dl (0.2-1.0); Creatinine Clr Calc Pharmacy 127.6 ml/min; Globulin 2.3 gm/dl (2.5-4.0); Potassium 3.7 mmol/L (3.5-5.1); Total Protein 5.1 gm/dl (6.0-8.3)
[2024-02-11] MEDS: bisacodyL 5 MG TABEC PO SCH (20:44)
[2024-02-11 23:07] VITALS: O2SAT 98
--- NOTE | 2024-02-12 08:00 | Obstetrical Progress Note ---
Date of Service February 12, 2024 Assessment & Plan (1) state: Plan Ready to d/c home today. BP yesterday was in HTN range and Labetalol 200mg PO was started. Just one dose brought her to 121/80 now and therefore will continue this med, but have close outpatient f/u to determine ongoing need. Patient counseled on s/sx of excessive beta blockade to watch for. Subjective Ambulation: ambulating normally Voiding: no voiding problems Passing Gas:: Yes Diet Tolerance:: regular diet Lochia:: Small Feeding Type:: breast feeding Physical Exam Constitutional WD/WN, vitals as above Eyes PERRL, conjunctivae normal, anicteric sclerae Neck normal visual inspection Respiratory normal respiratory effort and able to speak in complete sentences; no respiratory distress and no labored breathing Cardiovascular Rate/Rhythm: regular rate and regular rhythm Extremities: no edema Chest (Breasts) Chest: normal inspection of chest Gastrointestinal (Abdomen) Inspection/Auscultation: abdomen normal to inspection Soft, postgravid Psychiatric A+Ox3, euthymic affect Genitourinary OB Exam Abdomen: + fundal height Fundus: + firm and + relation to umbilicus (fundus just below umbilicus); not tender Results & Data Vital Signs (Past 12 Hours) Vital Signs Temp Pulse Pulse Resp BP Pulse Ox O2 Del Method 02/12/24 00:30 97.9 F 94 H 16 121/80 Room Air 02/11/24 20:30 98.4 F 96 H 16 120/81 98 Room Air
[2024-02-12 11:20] VITALS: BP 133/85; RESP 18; TEMP 99
[2024-02-12 12:29] VITALS: PULSE 94
== END 2024-02-12 11:10 | disposition home or self-care (01) | DRG 807 ==
LOC: 4S1 07:38 → UNDODISIN 20:09 → 4E2 22:01